=== PATIENT | male | born 1990 | race African-American/Black ===

== ENCOUNTER 2018-04-16 01:12 | Emergency (ER) | payer MEDICAID, SELFPAY ==
[2018-04-16] MEDS ORDERED: Lorazepam 1 MG TAB ONE ×2 (01:38→01:46)
[2018-04-16] MEDS ORDERED: OLANZapine ODT 5 MG TAB PO SCH (02:00)
[2018-04-16] MEDS ORDERED: Lorazepam 2 MG/ML VIAL ONE (02:29)
[2018-04-16 02:54] LABS: #Basophils 0.1 thou/uL (0.0-0.2); #Lymphocytes 2.1 thou/uL (1.20-3.40); #Monocytes 1.6 thou/uL (0.11-0.59); #Neutrophils 14.4 thou/uL (1.40-6.50); %Basophils 0.4 % (0.0-1.0); %Lymphocytes 11.5 % (21.0-51.0); %Monocytes 8.5 % (0.0-10.0); %Neutrophils 79.5 % (42.0-75.0); Hemoglobin 16.2 g/dL (14.0-18.0); Mean Corpuscular HGB CONC 36.3 g/dL (32.0-36.0); Mean Corpuscular Hemoglobin 32.3 pg (27.0-31.0); Mean Corpuscular Volume 89.2 fL (78.0-98.0); Mean Platelet Volume 7.8 fL (7.4-10.4); Platelet Count 242 thou/uL (130-400); RBC Distribution Width 10.7 % (11.5-14.5); White Blood Cell (WBC) Count 18.1 thou/uL (4.8-10.8)
[2018-04-16 03:32] LABS: Calcium 9.9 mg/dL (7.8-10.44); Chloride 99 mmol/L (98-107); Potassium 3.8 mmol/L (3.5-5.1); Sodium 138 mmol/L (136-145)
[2018-04-16 03:33] LABS: Globulin 2.6 g/dL (2.4-3.5); Glucose 71 mg/dL (70-105); Protein, Total 7.6 g/dL (6.0-8.3)
[2018-04-16 03:34] LABS: Anion Gap 21 mmol/L (10-20); Carbon Dioxide 22 mmol/L (22-29)
[2018-04-16 03:35] LABS: Bilirubin, Total 1.4 mg/dL (0.2-1.2)
[2018-04-16 03:36] LABS: Alkaline Phosphatase 96 U/L (40-150); Calc. Creatinine Clearance 0 mL/min (70-130); Estimated GFR-MDRD 52
[2018-04-16 03:37] LABS: BUN (Urea Nitrogen) 19 mg/dL (8.9-20.6)
[2018-04-16 03:38] LABS: AST (SGOT) 35 U/L (5-34)
[2018-04-16 03:39] LABS: ALT (SGPT) 20 U/L (8-55); CK (CPK) 1435 U/L (30-200)
== END 2018-04-16 03:57 ==
LOC: ERS 01:12
DX: F16.10 Hallucinogen abuse, uncomplicated (principal); R79.89 Other specified abnormal findings of blood chemistry; R45.1 Restlessness and agitation; F17.210 Nicotine dependence, cigarettes, uncomplicated
CPT/HCPCS: 80053; 82550; 85025; 93005; 96361; 96374; J2060

== ENCOUNTER 2020-07-02 17:05 | Emergency (ER) | payer OTHER, SELFPAY ==
[2020-07-02] MEDS ORDERED: Ibuprofen 200 MG TAB ONE (17:57)
[2020-07-03 13:01] LABS: SARS-CoV-2 MS2 Positive; SARS-CoV-2 N Gene Negative; SARS-CoV-2 S Gene Negative; SARS-CoV-2 by NAA Not Detected (NotDetected); SARS-CoV-2 orf1ab Negative
== END 2020-07-02 18:13 | disposition home or self-care (01) ==
LOC: ERS 17:05
DX: R51.9 Headache, unspecified (principal); R05 Cough; Z20.828 Contact with and (suspected) exposure to other viral communicable diseases; F17.210 Nicotine dependence, cigarettes, uncomplicated; F31.9 Bipolar disorder, unspecified
CPT/HCPCS: 87635; 99283; U0003

== ENCOUNTER 2020-09-20 20:19 | Emergency (ER) | payer SELFPAY ==
[2020-09-20] MEDS ORDERED: Morphine 4 MG/ML VIAL ONE (21:02)
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
== END 2020-09-20 23:22 | disposition home or self-care (01) ==
LOC: ERS 20:19
DX: S71.111A Laceration without foreign body, right thigh, initial encounter (principal); E10.9 Type 1 diabetes mellitus without complications; F17.210 Nicotine dependence, cigarettes, uncomplicated; W26.0XXA Contact with knife, initial encounter
CPT/HCPCS: 96372; J2270

== ENCOUNTER 2024-04-24 17:57 | Emergency (ER) | payer SELFPAY | END 2024-04-24 18:30 | disposition home or self-care (01) | LOC: EEVIPCON 17:57 → ERS 17:57 | DX: R45.1 Restlessness and agitation (principal) | CPT/HCPCS: 99284 ==